=== PATIENT | female | born 1965 | race Hispanic/Latino ===

== ENCOUNTER → 2022-09-11 | Day surgery (SDC) | payer OTHER ==
[~2022-09-11] MED LIST: FENTANYL CITRATE/PF 100MCG/2 ML INJ ONE; HYOSCYAMINE SULFATE 0.5 MG/ML INJ ONE; LACTATED RINGER'S 1,000 ML ONE; LIDOCAINE HCL 2% LOCAL INJ 5 ML SDV VIAL INJ ONE; NAPROXEN250 MG PO; PROPOFOL IV EMULSION 10 MG/ML 50 ML VIAL IV ONE; TYLENOL325 MG PO
[2022-09-11 15:36] VITALS: TEMP 97.2
[2022-09-11 16:05] VITALS: BP 125/81; PULSE 58; RESP 16; O2SAT 98
== END | disposition home or self-care (01) ==
LOC: OR 12:47
PROVIDERS: ATTEND Internal Medicine Gastroenterology
DX: Z12.11 Encounter for screening for malignant neoplasm of colon (principal); D12.3 Benign neoplasm of transverse colon; K29.50 Unspecified chronic gastritis without bleeding; B96.81 Helicobacter pylori [H. pylori] as the cause of diseases classified elsewhere; K29.60 Other gastritis without bleeding; K20.90 Esophagitis, unspecified without bleeding; K21.9 Gastro-esophageal reflux disease without esophagitis; K64.8 Other hemorrhoids; Z71.3 Dietary counseling and surveillance; Z79.1 Long term (current) use of non-steroidal anti-inflammatories (NSAID); Z68.34 Body mass index [BMI] 34.0-34.9, adult
CPT/HCPCS: 43239; 45385; C9113; J1980; J2001; J2704; J3010; J7121; 45378